=== PATIENT | female | born 1960 | race Caucasian/White ===

== ENCOUNTER 2024-03-03 01:08 | Day surgery (SDC) | payer OTHER, SELFPAY ==
[2024-02-29 13:55] VITALS: BMI 23.9
[2024-03-03 07:36] VITALS: BP 139/83; PULSE 75; RESP 18; TEMP 36.6; O2SAT 100
[2024-03-03] MEDS: LACTATED RINGERS 1,000 ML 150 ML IV CONT (07:39)
--- NOTE | 2024-03-03 08:14 | P.PNAN_ITS ---
Anes - Initial Pre Proc Eval Procedure: Operation Date: 03/03/24 09:00 Proposed Procedures p Esophagogastroduodenoscopy & Colonoscopy - Lobo Mckenzie MD Date/Time: 03/03/24 08:14 Surgeon: Lobo Mckenzie MD Pre Op Diagnosis: Anemia Patient Data Age: 64 Gender: F Height: 1.68 m Weight: 67.2 kg Last Vital Signs Temp 36.6 C 03/03/24 07:36 Pulse 75 03/03/24 07:36 Resp 18 03/03/24 07:36 BP 139/83 03/03/24 07:36 Pulse Ox 100 03/03/24 07:36 O2 Del Method Room Air 03/03/24 07:36 Allergies Allergy/AdvReac Type Severity Reaction Status Date / Time tramadol Allergy Severe Anaphylaxis Verified 03/03/24 07:35 Home Medications Medication Instructions Recorded Confirmed Type acetaminophen 325 mg tablet 650 mg PO Q6H PRN Pain 03/01/24 03/03/24 History albuterol 90 mcg/actuation aerosol 2 mcg inhalation BID PRN Shortness 03/01/24 03/03/24 History inhaler Of Breath amlodipine 10 mg tablet 10 mg PO DAILY 03/01/24 03/03/24 History atorvastatin 20 mg tablet 20 mg PO DAILY 03/01/24 03/03/24 History hydralazine 25 mg tablet 25 mg PO QID 03/01/24 03/03/24 History losartan 100 mg tablet 100 mg PO DAILY 03/01/24 03/03/24 History oxybutynin chloride 5 mg tablet 5 mg PO BID 03/01/24 03/03/24 History tiotropium bromide 18 mcg capsule 1 cap inhalation DAILY 03/01/24 03/03/24 History with inhalation device triamterene 37.5 1 tablet PO QAM 03/01/24 03/03/24 History mg-hydrochlorothiazide 25 mg tablet Patient hx anesthesia problems: none Family hx anesthesia problems: none Results Review: All pre-operative results and documents have been reviewed as part of the pre- operative evaluation. Anes - Eval Final PreProcedure Day of Procedure 03/03/24 08:14 Patient weight: normal Heart: regular rate and rhythm Lungs: clear to auscultation Airway: Mallampati scale class 1 Neurological: alert and oriented Last oral intake: >/= 8 hours ASA classification: III Emergent: no Anesthetic plan: proceed Anesthesia type and monitoring: general GIVS and standard monitoring Results Review: All pre-operative results and documents have been reviewed as part of the pre- operative evaluation. Informed Consent: The patient's anesthetic plan and its attendant risks and benefits were discussed with the patient/family/POA. Questions were solicited and answers provided to the satisfaction of the patient/family/POA.
--- NOTE | 2024-03-03 08:46 | P.HP_ITS ---
H&P: HPI History of Present Illness Date/Time: 03/03/24 08:46 Chief Complaint: Screening colonoscopy. Recurrent dyspepsia. Narrative: This patient had a screening colonoscopy 25 years ago. There is no family h istory of colorectal cancer. She reports occasional epigastric fullness and discomfort and is being referred for EGD and colonoscopy. Review of Systems Review of Systems: All systems reviewed & are unremarkable except as noted in HPI and below Meds Home Medications and Allergies Home Medications Medication Instructions Recorded Confirmed Type acetaminophen 325 mg tablet 650 mg PO Q6H PRN Pain 03/01/24 03/03/24 History albuterol 90 mcg/actuation aerosol 2 mcg inhalation BID PRN Shortness 03/01/24 03/03/24 History inhaler Of Breath amlodipine 10 mg tablet 10 mg PO DAILY 03/01/24 03/03/24 History atorvastatin 20 mg tablet 20 mg PO DAILY 03/01/24 03/03/24 History hydralazine 25 mg tablet 25 mg PO QID 03/01/24 03/03/24 History losartan 100 mg tablet 100 mg PO DAILY 03/01/24 03/03/24 History oxybutynin chloride 5 mg tablet 5 mg PO BID 03/01/24 03/03/24 History tiotropium bromide 18 mcg capsule 1 cap inhalation DAILY 03/01/24 03/03/24 History with inhalation device triamterene 37.5 1 tablet PO QAM 03/01/24 03/03/24 History mg-hydrochlorothiazide 25 mg tablet Allergies Allergy/AdvReac Type Severity Reaction Status Date / Time tramadol Allergy Severe Anaphylaxis Verified 03/03/24 07:35 Vital Signs Vital Signs - 24 hr 03/03/24 07:36 Temperature 97.9 F Pulse Rate 75 Respiratory Rate 18 Blood Pressure 139/83 Pulse Oximetry 100 Oxygen Delivery Room Air Exam Const: General: cooperative and healthy appearing Resp: Effort & Inspection: normal respiratory effort and able to speak in complete sentences Auscultation: clear to auscultation bilaterally Cardio: Rate: regular rate Rhythm: regular rhythm GI: Inspection: normal to inspection GI Palp: No No hepatosplenomegaly present Auscultation: normal bowel sounds Rectal Exam: deferred Skin: General skin exam: normal color Psych: Appearance: grossly normal Mental Status: mental status grossly normal Assessment and Plan Assessment and plan (1) Dyspepsia: Code(s): R10.13 - Epigastric pain Status: Acute Assessment and Plan: The patient is deemed a good candidate for the procedures. Consent signed. Will proceed. (2) Screening for malignant neoplasm of colon: Code(s): Z12.11 - Encounter for screening for malignant neoplasm of colon Status: Acute
--- NOTE | 2024-03-03 09:11 | SUR.OPER ---
EGD began at 858 and ended at 904. Colonoscopy began at 913.
[2024-03-03 09:32] VITALS: BP 93/53; PULSE 68; RESP 20; O2SAT 99
[2024-03-03 09:42] VITALS: BP 111/65; PULSE 74; RESP 20; O2SAT 99
[2024-03-03 09:52] VITALS: BP 131/80; PULSE 67; RESP 21; O2SAT 100
== END 2024-03-03 10:01 | disposition home or self-care (01) ==
PROVIDERS: Visit Provider Internal Medicine Gastroenterology
PROC: 0DJ08ZZ Inspection of Upper Intestinal Tract, Via Natural or Artificial Opening Endoscopic (ICD-10-PCS; CPT 43235; principal; 2024-03-03 09:00)
DX: Z12.11 Encounter for screening for malignant neoplasm of colon (principal); K64.1 Second degree hemorrhoids; K25.7 Chronic gastric ulcer without hemorrhage or perforation; K29.50 Unspecified chronic gastritis without bleeding; K44.9 Diaphragmatic hernia without obstruction or gangrene; Z79.51 Long term (current) use of inhaled steroids
CPT/HCPCS: 45378; 43239; 88305; J2003; J2704; J7120